=== PATIENT | male | born 1970 | race African-American/Black ===

== ENCOUNTER 2018-03-25 11:53 | Emergency (ER) | END 2018-03-25 15:50 | disposition home or self-care (01) ==

== ENCOUNTER 2018-04-17 21:28 | Emergency (ER) | END 2018-04-18 00:16 | disposition home or self-care (01) ==

== ENCOUNTER 2018-06-07 11:43 | Emergency (ER) | END 2018-06-07 12:42 | disposition home or self-care (01) ==

== ENCOUNTER 2018-06-08 05:58 | Emergency (ER) | END 2018-06-08 07:00 | disposition home or self-care (01) ==

== ENCOUNTER 2018-07-12 19:00 | Emergency (ER) | END 2018-07-12 20:32 | disposition home or self-care (01) ==